=== PATIENT | female | born 1960 | race Caucasian/White ===

== ENCOUNTER 2020-03-14 14:49 | Emergency (ER) | payer MEDICARE, SELFPAY ==
[2020-03-14 15:42] VITALS: BP 150/76; PULSE 97; RESP 18; TEMP 36.4; O2SAT 99; BMI 16.6
[2020-03-14 16:54] VITALS: BP 135/70; PULSE 70; RESP 20; TEMP 36.8; O2SAT 100
--- NOTE | 2020-03-14 17:27 | PC.NURSE ---
PT is sitting in the chair in her room. Exhibiting paranoid behavior; eyes darting around the room, extremely guarded posture.
--- NOTE | 2020-03-14 17:28 | ED_ITS ---
HPI - Psych General Chief Complaint: Psychiatric Symptoms <MICHELLE Huitron - Last Filed: 03/14/20 20:55> Stated Complaint: crisis <MICHELLE Huitron - Last Filed: 03/14/20 20:55> Time Seen by Provider: 03/14/20 15:28 <MICHELLE Huitron - Last Filed: 03/14/20 20:55> Source: patient and family <MICHELLE Huitron Last Filed: 03/14/20 20:55> Mode of arrival: ambulatory <MICHELLE Huitron - Last Filed: 03/14/20 20:55> Limitations: other (poor historian ) <MICHELLE Huitron Last Filed: 03/14/20 20:55> History of Present Illness HPI Narrative: 59 y/o female with history of lymphedema, hx LE cellulitis requiring hospitalization in September 2019 who presents with paranoia, disorganized thinking and concerns of safety at home per family. Patient states she was brought to the ER by her nephew for housing evaluation. She states that he has been paying for bills since her mother 1 year ago and can no longer support her. She admits to mild depression. Denies SI, HI, visual or hallucinations. She takes no medications. She carries no psychiatric diagnosis. <MICHELLE Huitron - Last Filed: 03/14/20 20:55> MD complaint: feels depressed and altered mental status <MICHELLE Huitron - Last Filed: 03/14/20 20:55> Onset (ago): month(s) <MICHELLE Huitron - Last Filed: 03/14/20 20:55> Duration: constant and getting worse <MICHELLE Huitron Last Filed: 03/14/20 20:55> History of same: Yes <MICHELLE Huitron Last Filed: 03/14/20 20:55> Relieving factors: none <MICHELLE Huitron Last Filed: 03/14/20 20:55> Exacerbating factors: none <MICHELLE Huitron Last Filed: 03/14/20 20:55> Associated psychiatric symptoms: depression and racing thoughts <MICHELLE Huitron Last Filed: 03/14/20 20:55> Associated symptoms: denies other symptoms <MICHELLE Huitron - Last Filed: 03/14/20 20:55> Treatments prior to arrival: none <MICHELLE Huitron - Last Filed: 03/14/20 20:55> Related Data Allergies/Adverse Reactions: Allergies Allergy/AdvReac Type Severity Reaction Status Date / Time No Known Allergies Allergy Verified 03/14/20 16:24 <MICHELLE Huitron - Last Filed: 03/14/20 20:55> Review of Systems Review of Systems: Constitutional: No Fever, No Chills ENT/Mouth: No sore throat, No Rhinorrhea, No Swallowing Difficulty Eyes: No Eye Pain, No Swelling, No Redness Cardiovascular: No Chest Pain, No SOB, No Orthopnea, No Edema Respiratory: No Cough, No Sputum, No Wheezing, No dyspnea Gastrointestinal: No Nausea, No Vomiting, No Diarrhea, No abdominal Pain, No Hematochezia, No Melena Genitourinary: No Dysuria, No Urinary Frequency, No Hematuria Musculoskeletal: No joint pain, No Myalgias Skin: No Skin Lesions, No rash Neuro: No Weakness, No Numbness, No Dizziness, No Headache Psych: + Anxiety/Panic, + Depression Heme/Lymph: No Bruising, No Lymphadenopathy Endocrine: No Polyuria, No Polydipsia <MICHELLE Huitron - Last Filed: 03/14/20 20:55> FORMERLY [facility], [facility] Past Medical History Medical History: Medical History (Updated 03/14/20 @ 22:42 by Sandor Barnes DO) Cellulitis Lymphedema <MICHELLE Huitron - Last Filed: 03/14/20 20:55> Social History Social History: Social History Alcohol intake: never Smoking Status: Never smoker Smoked in Last 30 Days: No Use of substances other than those prescribed or required for medical reasons: Unknown Advance Directives: No Advance Directives Information Provided: No <MICHELLE Huitron Last Filed: 03/14/20 20:55> Physical Exam Vital Signs and I&O and Narrative: Vital Signs and I&O: Vital Signs Temp 98.4 F 03/14/20 21:37 Pulse 68 03/14/20 21:37 Resp 20 03/14/20 21:37 BP 135/74 03/14/20 21:37 Pulse Ox 98 03/14/20 21:37 Intake & Output 03/14/20 03/14/20 03/15/20 06:59 18:59 06:59 Weight 45.359 kg Body Mass Index 16.6 Appearance: Alert. Oriented X3. disheveled Eyes: Pupils equal, round and reactive to light. ENT: Pharynx normal. Neck: Normal inspection. Neck supple. CVS: Normal heart rate and rhythm. Pulses normal. Respiratory: No respiratory distress. Breath sounds normal. Abdomen: Soft and nontender. +BS x4 Skin: bilateral LE wrapped in compression wrapping, refusing assessment. Extremities: bilateral wrapped Neuro: Oriented X 3. No motor deficit. No sensory deficit. <MICHELLE Huitron - Last Filed: 03/14/20 20:55> Vital Signs and I&O: Vital Signs Temp 98.4 F 03/14/20 21:37 Pulse 68 03/14/20 21:37 Resp 20 03/14/20 21:37 BP 135/74 03/14/20 21:37 Pulse Ox 98 03/14/20 21:37 Intake & Output 03/14/20 03/14/20 03/15/20 06:59 18:59 06:59 Weight 45.359 kg Body Mass Index 16.6 <Sandor Barnes DO - Last Filed: 03/14/20 22:44> Course Course Hospital Course: per patient's nephew when she was hospitalized at [facility] in the Spring she was exhibiting delusions and paranoia and was perhaps diagnosed with Bipolar. Will attempt to get their records. CARE team involved. Awaiting medical workup. She is currently refusing assessment of her LE lymphedema. Her lower legs are wrapped and she will not take them down as per Care Team safe for discharge home. Patient without suicidal homicidal ideations and safe place to go to <MICHELLE Huitron - Last Filed: 03/14/20 20:55> Reevaluation(s) Reevaluation #1: Patient convinced to allow blood work and urine test - unremarkable results. CARE team to see. Per [facility]N at [facility] there was a questionable diagnosis of schizotypal personality disorder. <MICHELLE Huitron - Last Filed: 03/14/20 20:55> Time: 20:19 <MICHELLE Huitron - Last Filed: 03/14/20 20:55> MDM - Psych Restraints Face to Face Assessment: Face to Face Assessment: Current Situation: After assessment of the patient, a review of the pertinent medical record and a discussion with nursing staff, I feel the patient requires a restrain intervention. Reaction To: [] Medical Condition: [] Behavioral State: [] Continued Need: [] <MICHELLE Huitron - Last Filed: 03/14/20 20:55> Lab Data Result diagrams: : 03/14/20 17:52 03/14/20 17:52 <MICHELLE Huitron Last Filed: 03/14/20 20:55> Labs: Lab Results 03/14/20 03/14/20 03/14/20 Range/Units 17:52 17:52 17:52 WBC 7.1 (4.8-10.8) X10*3/uL RBC 4.63 (4.20-5.50) X10*6/uL Hgb 13.2 (12.0-16.0) g/dl Hct 40.6 (37-47) % MCV 87.7 (80-98) fL MCH 28.5 (27.0-33.0) pg MCHC 32.5 (31.0-35.0) g/dl RDW 14.1 (11.0-16.0) % Plt Count 381 (160-400) X10*3/uL MPV 9.1 L (9.4-12.3) fL Immature Gran % (Auto) 0.1 (0.0-0.4) % Neut % (Auto) 66.8 (45-73) % Lymph % (Auto) 24.8 (20-40) % [place] % (Auto) 6.9 (2-11) % Eos % (Auto) 0.7 (0-4) % Baso % (Auto) 0.7 (0-2) % Neut # (Auto) 4.7 (2.0-8.3) X10*3/uL Lymph # (Auto) 1.8 (1.2-4.9) X10*3/uL [place] # (Auto) 0.5 (0.1-1.2) X10*3/uL Eos # (Auto) 0.1 (0.0-0.4) X10*3/uL Baso # (Auto) 0.1 (0.0-0.2) X10*3/uL Abs Immat Gran (auto) 0.01 (0.00-0.03) X10*3/uL Absolute Nucleated RBC 0.000 (0.0-0.012) X10*3/uL Nucleated RBC % (auto) 0.0 (0.0-0.2) /100WBC Sodium 141 (135-145) mmol/L Potassium 4.2 (3.3-5.1) mmol/l Chloride 102 (96-108) mmol/L Carbon Dioxide 29 (22-29) mmol/L Anion Gap 14 (12-20) BUN 16 (9-16) mg/dL Creatinine 0.78 (0.5-1.4) mg/dL Estim Creat Clear Calc 57.0 Estimated GFR > 60 Random Glucose 87 (60-115) mg/dL Calcium 9.7 (8.4-10.2) mg/dL Total Bilirubin 0.4 (0.0-1.0) mg/dL AST 23 (5-31) U/L ALT 31 (0-31) U/L Alkaline Phosphatase 72 (39-117) U/L Total Protein 8.1 H (6.5-8.0) g/dL Albumin 4.8 (3.5-5.0) g/dL Urine Color Urine Appearance Urine pH (5.0-8.0) Ur Specific [place] (1.005-1.025) Urine Protein (NEG-TRACE) MG/DL Urine Glucose (UA) (NEG) MG/DL Urine Ketones (NEG) MG/DL Urine Blood (NEG) Urine Nitrite (NEG) Ur Leukocyte Esterase (NEG) Urine RBC (0) /HPF Urine WBC (0-4) /HPF Ur Squamous Epith Cells /LPF Urine Bacteria /LPF Urine Opiates Screen (Not Detect) Ur Barbiturates Screen (Not Detect) Ur Phencyclidine Scrn (Not Detect) Ur Amphetamines Screen (Not Detect) U Benzodiazepines Scrn (Not Detect) Urine Cocaine Screen (Not Detect) U Marijuana (THC) Screen (Not Detect) Ethyl Alcohol < 10 mg/dL 03/14/20 03/14/20 Range/Units 19:20 19:20 WBC (4.8-10.8) X10*3/uL RBC (4.20-5.50) X10*6/uL Hgb (12.0-16.0) g/dl Hct (37-47) % MCV (80-98) fL MCH (27.0-33.0) pg MCHC (31.0-35.0) g/dl RDW (11.0-16.0) % Plt Count (160-400) X10*3/uL MPV (9.4-12.3) fL Immature Gran % (Auto) (0.0-0.4) % Neut % (Auto) (45-73) % Lymph % (Auto) (20-40) % [place] % (Auto) (2-11) % Eos % (Auto) (0-4) % Baso % (Auto) (0-2) % Neut # (Auto) (2.0-8.3) X10*3/uL Lymph # (Auto) (1.2-4.9) X10*3/uL [place] # (Auto) (0.1-1.2) X10*3/uL Eos # (Auto) (0.0-0.4) X10*3/uL Baso # (Auto) (0.0-0.2) X10*3/uL Abs Immat Gran (auto) (0.00-0.03) X10*3/uL Absolute Nucleated RBC (0.0-0.012) X10*3/uL Nucleated RBC % (auto) (0.0-0.2) /100WBC Sodium (135-145) mmol/L Potassium (3.3-5.1) mmol/l Chloride (96-108) mmol/L Carbon Dioxide (22-29) mmol/L Anion Gap (12-20) BUN (9-16) mg/dL Creatinine (0.5-1.4) mg/dL Estim Creat Clear Calc Estimated GFR Random Glucose (60-115) mg/dL Calcium (8.4-10.2) mg/dL Total Bilirubin (0.0-1.0) mg/dL AST (5-31) U/L ALT (0-31) U/L Alkaline Phosphatase (39-117) U/L Total Protein (6.5-8.0) g/dL Albumin (3.5-5.0) g/dL Urine Color STRAW Urine Appearance CLEAR Urine pH 6.5 (5.0-8.0) Ur Specific [place] 1.015 (1.005-1.025) Urine Protein NEG (NEG-TRACE) MG/DL Urine Glucose (UA) NEG (NEG) MG/DL Urine Ketones NEG (NEG) MG/DL Urine Blood NEG (NEG) Urine Nitrite NEG (NEG) Ur Leukocyte Esterase 1+ H (NEG) Urine RBC 0-2 (0) /HPF Urine WBC 1-4 (0-4) /HPF Ur Squamous Epith Cells TRACE /LPF Urine Bacteria NONE /LPF Urine Opiates Screen Not Detected (Not Detect) Ur Barbiturates Screen Not Detected (Not Detect) Ur Phencyclidine Scrn Not Detected (Not Detect) Ur Amphetamines Screen Not Detected (Not Detect) U Benzodiazepines Scrn Not Detected (Not Detect) Urine Cocaine Screen Not Detected (Not Detect) U Marijuana (THC) Screen Not Detected (Not Detect) Ethyl Alcohol mg/dL <MICHELLE Huitron - Last Filed: 03/14/20 20:55> Lab Results 03/14/20 03/14/20 03/14/20 Range/Units 17:52 17:52 17:52 WBC 7.1 (4.8-10.8) X10*3/uL RBC 4.63 (4.20-5.50) X10*6/uL Hgb 13.2 (12.0-16.0) g/dl Hct 40.6 (37-47) % MCV 87.7 (80-98) fL MCH 28.5 (27.0-33.0) pg MCHC 32.5 (31.0-35.0) g/dl RDW 14.1 (11.0-16.0) % Plt Count 381 (160-400) X10*3/uL MPV 9.1 L (9.4-12.3) fL Immature Gran % (Auto) 0.1 (0.0-0.4) % Neut % (Auto) 66.8 (45-73) % Lymph % (Auto) 24.8 (20-40) % [place] % (Auto) 6.9 (2-11) % Eos % (Auto) 0.7 (0-4) % Baso % (Auto) 0.7 (0-2) % Neut # (Auto) 4.7 (2.0-8.3) X10*3/uL Lymph # (Auto) 1.8 (1.2-4.9) X10*3/uL [place] # (Auto) 0.5 (0.1-1.2) X10*3/uL Eos # (Auto) 0.1 (0.0-0.4) X10*3/uL Baso # (Auto) 0.1 (0.0-0.2) X10*3/uL Abs Immat Gran (auto) 0.01 (0.00-0.03) X10*3/uL Absolute Nucleated RBC 0.000 (0.0-0.012) X10*3/uL Nucleated RBC % (auto) 0.0 (0.0-0.2) /100WBC Sodium 141 (135-145) mmol/L Potassium 4.2 (3.3-5.1) mmol/l Chloride 102 (96-108) mmol/L Carbon Dioxide 29 (22-29) mmol/L Anion Gap 14 (12-20) BUN 16 (9-16) mg/dL Creatinine 0.78 (0.5-1.4) mg/dL Estim Creat Clear Calc 57.0 Estimated GFR > 60 Random Glucose 87 (60-115) mg/dL Calcium 9.7 (8.4-10.2) mg/dL Total Bilirubin 0.4 (0.0-1.0) mg/dL AST 23 (5-31) U/L ALT 31 (0-31) U/L Alkaline Phosphatase 72 (39-117) U/L Total Protein 8.1 H (6.5-8.0) g/dL Albumin 4.8 (3.5-5.0) g/dL Urine Color Urine Appearance Urine pH (5.0-8.0) Ur Specific [place] (1.005-1.025) Urine Protein (NEG-TRACE) MG/DL Urine Glucose (UA) (NEG) MG/DL Urine Ketones (NEG) MG/DL Urine Blood (NEG) Urine Nitrite (NEG) Ur Leukocyte Esterase (NEG) Urine RBC (0) /HPF Urine WBC (0-4) /HPF Ur Squamous Epith Cells /LPF Urine Bacteria /LPF Urine Opiates Screen (Not Detect) Ur Barbiturates Screen (Not Detect) Ur Phencyclidine Scrn (Not Detect) Ur Amphetamines Screen (Not Detect) U Benzodiazepines Scrn (Not Detect) Urine Cocaine Screen (Not Detect) U Marijuana (THC) Screen (Not Detect) Ethyl Alcohol < 10 mg/dL 03/14/20 03/14/20 Range/Units 19:20 19:20 WBC (4.8-10.8) X10*3/uL RBC (4.20-5.50) X10*6/uL Hgb (12.0-16.0) g/dl Hct (37-47) % MCV (80-98) fL MCH (27.0-33.0) pg MCHC (31.0-35.0) g/dl RDW (11.0-16.0) % Plt Count (160-400) X10*3/uL MPV (9.4-12.3) fL Immature Gran % (Auto) (0.0-0.4) % Neut % (Auto) (45-73) % Lymph % (Auto) (20-40) % [place] % (Auto) (2-11) % Eos % (Auto) (0-4) % Baso % (Auto) (0-2) % Neut # (Auto) (2.0-8.3) X10*3/uL Lymph # (Auto) (1.2-4.9) X10*3/uL [place] # (Auto) (0.1-1.2) X10*3/uL Eos # (Auto) (0.0-0.4) X10*3/uL Baso # (Auto) (0.0-0.2) X10*3/uL Abs Immat Gran (auto) (0.00-0.03) X10*3/uL Absolute Nucleated RBC (0.0-0.012) X10*3/uL Nucleated RBC % (auto) (0.0-0.2) /100WBC Sodium (135-145) mmol/L Potassium (3.3-5.1) mmol/l Chloride (96-108) mmol/L Carbon Dioxide (22-29) mmol/L Anion Gap (12-20) BUN (9-16) mg/dL Creatinine (0.5-1.4) mg/dL Estim Creat Clear Calc Estimated GFR Random Glucose (60-115) mg/dL Calcium (8.4-10.2) mg/dL Total Bilirubin (0.0-1.0) mg/dL AST (5-31) U/L ALT (0-31) U/L Alkaline Phosphatase (39-117) U/L Total Protein (6.5-8.0) g/dL Albumin (3.5-5.0) g/dL Urine Color STRAW Urine Appearance CLEAR Urine pH 6.5 (5.0-8.0) Ur Specific [place] 1.015 (1.005-1.025) Urine Protein NEG (NEG-TRACE) MG/DL Urine Glucose (UA) NEG (NEG) MG/DL Urine Ketones NEG (NEG) MG/DL Urine Blood NEG (NEG) Urine Nitrite NEG (NEG) Ur Leukocyte Esterase 1+ H (NEG) Urine RBC 0-2 (0) /HPF Urine WBC 1-4 (0-4) /HPF Ur Squamous Epith Cells TRACE /LPF Urine Bacteria NONE /LPF Urine Opiates Screen Not Detected (Not Detect) Ur Barbiturates Screen Not Detected (Not Detect) Ur Phencyclidine Scrn Not Detected (Not Detect) Ur Amphetamines Screen Not Detected (Not Detect) U Benzodiazepines Scrn Not Detected (Not Detect) Urine Cocaine Screen Not Detected (Not Detect) U Marijuana (THC) Screen Not Detected (Not Detect) Ethyl Alcohol mg/dL <Sandor Barnes DO - Last Filed: 03/14/20 22:44> Discharge Plan Discharge Clinical Impression: Paranoia, Acute anxiety <MICHELLE Huitron - Last Filed: 03/14/20 20:55> Patient Disposition: Home, Self-Care <MICHELLE Huitron - Last Filed: 03/14/20 20:55> Instructions: Anxiety (ED) <MICHELLE Huitron - Last Filed: 03/14/20 20:55> Additional Instructions: Thank you for visiting the emergency department today. If your symptoms worsen or do not resolve completely please return to the emergency department immediately or call 911. if he have any questions please call your primary care physician <MICHELLE Huitron - Last Filed: 03/14/20 20:55> Referrals: Behavioral Health Specialist [Provider Group] - 2 days <MICHELLE Huitron - Last Filed: 03/14/20 20:55>
[2020-03-14 18:03] LABS: MANUAL DIFF FLAG NO
[2020-03-14 18:07] LABS: Basophils Absolute Auto 0.1 X10*3/uL (0.0-0.2); Basophils Percent Auto 0.7 % (0-2); Eosinophils Absolute Auto 0.1 X10*3/uL (0.0-0.4); Eosinophils Percent Auto 0.7 % (0-4); Hematocrit 40.6 % (37-47); Hemoglobin 13.2 g/dl (12.0-16.0); Imm Gran Abs Auto 0.01 X10*3/uL (0.00-0.03); Imm Gran Pct Auto 0.1 % (0.0-0.4); Lymphocytes Absolute Auto 1.8 X10*3/uL (1.2-4.9); Lymphocytes Percent Auto 24.8 % (20-40); Mean Corpuscular HGB Conc 32.5 g/dl (31.0-35.0); Mean Corpuscular Hemoglobin 28.5 pg (27.0-33.0); Mean Corpuscular Volume 87.7 fL (80-98); Mean Platelet Volume 9.1 fL (9.4-12.3); Monocytes Absolute Auto 0.5 X10*3/uL (0.1-1.2); Monocytes Percent Auto 6.9 % (2-11); Neutrophils Absolute Auto 4.7 X10*3/uL (2.0-8.3); Neutrophils Percent Auto 66.8 % (45-73); Platelet Count 381 X10*3/uL (160-400); Red Blood Count 4.63 X10*6/uL (4.20-5.50); Red Cell Distribution Width 14.1 % (11.0-16.0); White Blood Count 7.1 X10*3/uL (4.8-10.8)
[2020-03-14 18:44] LABS: Ethanol < 10 mg/dL
[2020-03-14 18:48] LABS: Alanine Aminotransferase 31 U/L (0-31); Albumin Level 4.8 g/dL (3.5-5.0); Alkaline Phosphatase 72 U/L (39-117); Anion Gap 14 (12-20); Aspartate Amino Transferase 23 U/L (5-31); Bilirubin Total 0.4 mg/dL (0.0-1.0); Blood Urea Nitrogen 16 mg/dL (9-16); Calcium 9.7 mg/dL (8.4-10.2); Carbon Dioxide 29 mmol/L (22-29); Chloride 102 mmol/L (96-108); Estimated Glomerular Filt Rate > 60; Glucose Random 87 mg/dL (60-115); Potassium 4.2 mmol/l (3.3-5.1); Sodium 141 mmol/L (135-145); Total Protein 8.1 g/dL (6.5-8.0)
[2020-03-14 19:28] VITALS: BP 134/70; PULSE 80; RESP 20; TEMP 36.6; O2SAT 97
[2020-03-14 19:29] LABS: Glucose Urine UA NEG (NEG); Leukocyte Esterase Urine 1+ (NEG); Nitrite Urine NEG (NEG); PH 6.5 (5.0-8.0); Specific Gravity - Urine 1.015 (1.005-1.025); Urine Blood NEG (NEG); Urine Ketones NEG (NEG); Urine Protein NEG (NEG-TRACE)
[2020-03-14 19:42] LABS: Color Urine STRAW
[2020-03-14 19:43] LABS: Appearance Urine CLEAR
[2020-03-14 19:44] LABS: RBC Urine 0-2 /HPF (0); Squamous Epithelial Cell Urine TRACE /LPF
[2020-03-14 19:51] LABS: Amphetamine Screen Urine Not Detected (Not Detect); Barbiturates, Urine Not Detected (Not Detect); Benzodiazepines Screen Urine Not Detected (Not Detect); Cannabinoid Screen Urine Not Detected (Not Detect); Cocaine Screen Urine Not Detected (Not Detect); Opiate Screen Urine Not Detected (Not Detect); Phencyclidine Screen Urine Not Detected (Not Detect)
--- NOTE | 2020-03-14 21:35 | PC.NURSE ---
Pt's nephew/HCP would like to be called with updates Tej Alexandre [phone]
[2020-03-14 21:37] VITALS: BP 135/74; PULSE 68; RESP 20; TEMP 36.9; O2SAT 98
--- NOTE | 2020-03-14 22:54 | PC.NURSE ---
PATIENT SEEN BY CARE TEAM. PLAN IS TO DISCHARGE PATIENT BACK HOME WITH NEPHEW. PATIENT TO FOLLOW UP WITH HER DOCTOR ON SUNDAY. CARE TEAM IN REVIEWING HER PLAN AND DISCUSSING OPTIONS WITH HER
== END 2020-03-14 23:35 | disposition home or self-care (01) ==
PROVIDERS: Physician Assistant; Emergency Provider Emergency Medicine; PCP Nurse Practitioner Adult Health
DX: F22 Delusional disorders (principal); F41.9 Anxiety disorder, unspecified
CPT/HCPCS: 36415; 80053; 80307; 80320; 81001; 85025; 99284